=== PATIENT | male | born 1945 | race Caucasian/White ===

== ENCOUNTER 2019-08-24 08:09 | Inpatient (IN) | payer MEDICARE, BC ==
[~2019-08-24] VITALS: Ht 170.2 cm; Wt 82.7 kg
[2019-08-24] VITALS (17 sets, daily range): BP systolic 103–155; BP diastolic 47–102
[2019-08-24] MEDS ORDERED: LOSA50TA3 MT (08:49)
[2019-08-24] MEDS ORDERED: ASPI-1160 MT (08:49)
[2019-08-24] MEDS ORDERED: CELE200C MT (08:49)
[2019-08-24] MEDS ORDERED: LIDOCAINE HCL 1% 20ML VIAL (Pyxis) INJ ONE (09:55)
[2019-08-24] MEDS ORDERED: IODIXANOL 320MG/ML 100 ML BOTTLE IV ONE ×2 (09:55→11:00)
[2019-08-24] MEDS ORDERED: FENTANYL CITRATE/PF 50MCG/ML 2ML VIAL ONE (09:56)
[2019-08-24] MEDS ORDERED: MIDAZOLAM HCL 2 MG/2 ML VIAL ONE ×2 (09:56→10:36)
[2019-08-24] MEDS ORDERED: IOHEXOL-300 100 ML BOTTLE ONE (10:43)
[2019-08-24] MEDS ORDERED: TICAGRELOR 90 MG TABLET PO ONE (11:23)
[2019-08-24] MEDS ORDERED: ASPIRIN 325MG EC TABLET PO ONE (11:24)
[2019-08-24] MEDS ORDERED: ACETAMINOPHEN 325MG TABLET PO PRN (11:30)
[2019-08-24] MEDS ORDERED: ATROPINE SULFATE 1MG/10ML SYR IV PRN (11:30)
[2019-08-24] MEDS: TICAGRELOR 90 MG TABLET PO SCH (18:15)
[2019-08-25 00:01] VITALS: BP 126/77
[2019-08-25 02:01] VITALS: BP 104/63
[2019-08-25 04:03] VITALS: BP 108/64
[2019-08-25 06:01] VITALS: BP 122/76
[2019-08-25 06:59] LABS: CHLORIDE 109 mEq/L (98-107)
[2019-08-25 07:00] LABS: BASOPHILS % 0.5 % (0.0-2.0); EOSINOPHILS % 2.2 % (0.0-5.0); HEMATOCRIT. 42.2 % (42.0-52.0); HEMOGLOBIN. 14.5 g/dL (14.0-18.0); MEAN CORPUSCULAR HEMOGLOBIN 32.3 pg (28.0-32.0); MEAN CORPUSCULAR VOLUME 93.8 fL (80.0-94.0); MEAN PLATELET VOLUME 8.9 fl (7.4-10.4); MONOCYTES % 8.6 % (2.0-8.0); NEUTROPHILS % 68.7 % (40.0-76.0); PLATELET 152 x1000/uL (130-400)
[2019-08-25 08:01] VITALS: BP 132/80
[2019-08-25] MEDS: TICAGRELOR 90 MG TABLET PO SCH (08:23)
[2019-08-25] MEDS ORDERED: ASPIRIN 81MG TABLET PO SCH (09:00)
[2019-08-25] MEDS ORDERED: ASPIRIN 325MG TABLET PO SCH (09:00)
[2019-08-25] MEDS ORDERED: NITROGLYCERIN 50MCG/ML 10ML VIAL (CATH LAB) IV ONE (10:00)
[2019-08-25] MEDS ORDERED: NICARDIPINE 100MCG/ML 10ML VIAL (CATH LAB) IV ONE (10:00)
[2019-08-25] MEDS ORDERED: HEPARIN SODIUM 1,000 UNIT/1ML VIAL IV ONE (10:00)
== END 2019-08-25 10:00 | disposition home or self-care (01) | DRG 247 ==
LOC: CCL 08:09 → 3WST 08:10
PROVIDERS: ADMIT Specialist; ATTEND Specialist
PROC: 027135Z Dilation of Coronary Artery, Two Arteries with Two Drug-eluting Intraluminal Devices, Percutaneous Approach (ICD-10-PCS; principal; 2019-08-24)
PROC: 4A023N7 Measurement of Cardiac Sampling and Pressure, Left Heart, Percutaneous Approach (ICD-10-PCS; 2019-08-24)
PROC: B215YZZ Fluoroscopy of Left Heart using Other Contrast (ICD-10-PCS; 2019-08-24)
PROC: B211YZZ Fluoroscopy of Multiple Coronary Arteries using Other Contrast (ICD-10-PCS; 2019-08-24)
DX: I25.110 Atherosclerotic heart disease of native coronary artery with unstable angina pectoris (principal); E78.5 Hyperlipidemia, unspecified; I11.9 Hypertensive heart disease without heart failure; I49.1 Atrial premature depolarization; I49.3 Ventricular premature depolarization; Z79.02 Long term (current) use of antithrombotics/antiplatelets; Z79.82 Long term (current) use of aspirin; Z82.49 Family history of ischemic heart disease and other diseases of the circulatory system; Z88.8 Allergy status to other drugs, medicaments and biological substances
CPT/HCPCS: 36415; 80048; 85347; 92928; 92929; 93005; 93458; C1725; C1769; C1874; C1887; C1893; J1644; J2250; J3010; J3490; Q9967; J8499